=== PATIENT | male | born 1940 | race Caucasian/White ===

== ENCOUNTER 2019-01-29 12:26 | Observation (INO) ==
[2019-01-29] MEDS ORDERED: 0.9 % Sodium Chloride 1,000 ML ONE (16:40)
[2019-01-29] MEDS ORDERED: 0.9 % Sodium Chloride 1,000 ML IVC SCH (16:45)
[2019-01-29 17:01] LABS: Basophils % 0.1 %; Eosinophils % 0.1 %; Hematocrit 42.3 % (37.5-50.1); Immature Granulocytes % 0.2 % (0-4); Lymphocytes # 0.6 K/mcL (0.6-4.6); Lymphocytes % 6.4 %; Mean Corpuscular HGB Conc 33.1 g/dL (31.6-35.5); Mean Corpuscular Hemoglobin 29.8 pg (28.0-33.3); Mean Platelet Volume 9.6 fL (9.4-12.4); Monocytes # 0.7 K/mcL (0.0-1.3); Neutrophils # 8.6 K/mcL (1.6-8.9); Platelet Count 141 K/mcL (140-400); Segmented Neutrophils % 86.2 %
[2019-01-29 17:10] LABS: INR 1.1; Prothrombin Time 12.6 Seconds (9.4-12.1)
[2019-01-29 17:22] LABS: BUN/Creatinine Ratio 16 (6-26); Blood Urea Nitrogen 13 mg/dL (8-23); Calcium 8.7 mg/dL (8.6-10.3); Carbon Dioxide 25 mEq/L (23-29); Chloride 102 mEq/L (98-107); Glucose 150 mg/dL (70-105); Osmolality,Calculated 277 (280-300); Sodium 132 mEq/L (136-145); Troponin I < 0.03 ng/mL (< 0.04); eGFR For Non-African Americans > 60 (> 60)
[2019-01-29] MEDS ORDERED: Naloxone 0.4 MG/ML INJ IVP PRN (18:16)
[2019-01-29] MEDS ORDERED: Dextrose Gel 15 GM/37.5 ML TUBE PO PRN ×2 (18:16)
[2019-01-29] MEDS ORDERED: *HR* Dextrose 50 % in Water (Syg) 50 ML SYRINGE IVP PRN (18:16)
[2019-01-29] MEDS ORDERED: Ondansetron 4 MG/2 ML VIAL IVP PRN (18:16)
[2019-01-29] MEDS ORDERED: D5% in Water 1,000 ML IVC PRN (18:16)
--- NOTE | 2019-01-29 18:33 | Neurology - Consult Note ---
Date of Encounter: 01/29/19 Time of Encounter: 17:30 History of Present Illness HPI: Chart was reviewed, patient was seen and examined. Patient is known to me and was recently seen as an outpatient in my office regarding balance difficulty. Apparently last night his mentioned that he began experiencing more difficulty walking with associated confusion. Apparently he also had several ep isodes of diarrhea. He was taken to [facility] where he had a "normal work up" and was later transferred to [facility] at his 's request. Since being admitted here is become increasingly confused. He denies headache, however is really not a reliable historian. He seems to have some paucity of movement of the left upper and left lower extremities. He also seems to have paucity of speech. Neurologic exam finds weakness of the left upper and left lower extremity. He has no nuchal rigidity. A stroke alert was called patient was taken to the ED with the [facility] stroke protocol through the telemonitoring network was implemented. He was not deemed is a candidate for TPA. We are awaiting MRI scan of the brain currently. CT scan of the brain revealed no evidence of hemorrhage or mass effect. He does have cortical atrophy with compensatory ventricular dilatation, however no evidence of an obstructive hydrocephalus. Past Med Surg Social Fam HX - Past Medical History Medical history: arthritis, diabetes, GERD, hyperlipidemia Additional medical history: CAD. Rotator cuff tear. acromioclavicular joint arthritis Psychiatric history: no psych history - Past Surgical History Additional surgical history: CTR. Bilat knee. Sinus. Tonsillectomy. L tKR x2. heart stent x2 - Social History Smoking Status: Former smoker Smokeless Tobacco Status: No Alcohol use: occasionally Drug use: none - Family History Brother Hx Family Cardiac Disorders: Yes Hx Family Genitourinary Disorders: Yes Medications and Allergies Aspirin 81 mg PO DAILY 04/18/16 [History] Omeprazole [PriLOSEC] 20 mg PO DAILY 04/18/16 [History] Rosuvastatin Calcium [Crestor] 10 mg PO DAILY 04/18/16 [History] Tadalafil [Cialis] 20 mg PO DAILY PRN 04/18/16 [History] Tamsulosin [Flomax] 0.4 mg PO DAILY 04/18/16 [History] metFORMIN [Glucophage] 1,000 mg PO DAILY 04/18/16 [History] Albuterol Sulfate [Proair Hfa] 1 puff IH Q4H PRN 04/09/18 [History] Cetirizine HCl [24Hour Allergy] 10 mg PO DAILY 04/09/18 [History] Cholecalciferol (Vitamin D3) [Vitamin D] 1,000 unit PO DAILY 04/09/18 [History] Darifenacin Hydrobromide [Darifenacin ER] 15 mg PO DAILY 04/09/18 [History] Finasteride [Proscar] 5 mg PO DAILY 04/09/18 [History] Fluticasone Propionate Nasal [Flonase] 50 mcg NS DAILY PRN 04/09/18 [History] metFORMIN [Glucophage] 500 mg PO BIDWM 04/30/18 [History] DULoxetine [Cymbalta] 30 mg PO DAILY 01/29/19 [History] Allergy/AdvReac Type Severity Reaction Status Date / Time No Known Allergies Allergy Verified 04/30/18 09:16 All Systems: The remainder of the systems were reviewed and are negative Review of Systems: The balance of the systems review is negative. Physical Examination - Vital Signs Vital Signs: Initial Vital Signs Temp Pulse Resp BP Pulse Ox 100.1 F H 87 15 149/75 96 01/29/19 14:44 01/29/19 14:44 01/29/19 14:44 01/29/19 14:44 01/29/19 14:44 - Exam Exam: General Examination: *CONSTITUTIONAL: normal *GENERAL APPEARANCE OF PATIENT appears healthy and well groomed *EYES: pupils equal, round, reactive to light and accommodation, conjunctiva clear without masses or ulcerations, fundi normal. *CARDIOVASCULAR no peripheral edema, distal temperature normal, dorsalis pedis pulses normal. Refer to vital signs Musculoskeletal: *GAIT AND STATION WAS not assessed at this time. *ASSESSMENT OF MUSCLE STRENGTH finds weakness at about 4/5 strength of all muscles of the left upper and left lower extremities. He also has paucity of movement of the left leg when commanded to move it. He moves the right upper and right lower extremities freely. He has normal strength of the right upper and right lower extremities. No involuntary movements or atrophy are present. *MUSCLE TONE IN THE UPPER AND LOWER EXTREMITIES normal. No abnormal movements, fasciculations or atrophy identified. No nuchal rigidity is present. Neurological: *ORIENTATION to person only. *RECURRENT AND REMOTE MEMORY he does remember seeing me in the office. He knows that he is in [facility] now. However he is uncomfortable and cannot give a lucid history. *ATTENTION AND CONCENTRATION are normal *LANGUAGE FUNCTION he seems to have some paucity of speech and perhaps an element of expressive aphasia. *FUND OF KNOWLEDGE difficult to assess as he is confused *MENTAL attention span and concentration normal. *CN II optic fundi were normal, no papilledema noted. *CN III,IV, PERRLA extraocular eye movements were full, no nystagmus and no ptosis noted. *CN V shows normal sensation and jaw opens symmetrically. *CN VII shows normal facial movement symmetrically, upper and lower bilaterally. *CN VIII shows no significant hearing loss on examination in the office. *CN IX,,X palate elevated symmetrically and normal gag reflex was noted. *CN XI normal strength in the sternocleidomastoid muscles, symmetrical shoulder shrugging. *CN XII tongue protruded in the midline, with normal strength and movement. *SENSORY EXAMINATION difficult to assess today confused patient *REFLEXES: deep tendon reflexes were diminished symmetrically , grade 1/4 diffusely absent at both Achilles. Cannot rule out spontaneous left Babinski) was present *CEREBELLAR TESTING not assessed. *PAIN LEVEL -denies headache denies neck pain. Results - Laboratory Findings CBC and BMP: 01/29/19 16:45 01/29/19 16:45 Abnormal lab findings: Abnormal lab results PT 12.6 Seconds (9.4-12.1) H 01/29/19 16:45 Sodium 132 mEq/L (136-145) L 01/29/19 16:45 Glucose 150 mg/dL (70-105) H 01/29/19 16:45 277 (280-300) L 01/29/19 16:45 Consult Discharge Plan - Plan Referrals: Adolfo Moser DO [Primary Care Provider] -
--- NOTE | 2019-01-29 18:35 | Internal Med History&Physical ---
Date of Encounter: 01/29/19 Time of Encounter: 16:20 Internal Medicine - H&P: HPI Chief complaint: Altered mental status Admitted From: Home Plans for Post Hospital Care: Home History of present illness: Mr. Dyson is a 78 year old male transferred from [place] ER for fever, weakness, and altered mental status. Patient is disoriented, history obtained from patient's . Patient's past medical history is significant for diabetes, CAD S/P stent, arthritis, S/P bilateral total knee replacement. Per patient's , patient has generalized weakness and unstable gait for several months, progressively getting worse. Patient follows with neurology Dr. Pearce as outpatient and plan for LP as outpatient but not done yet. Patient is a generalized weak about to 1 days ago, has diarrhea last night. Diarrhea is watery, no blood in it. Patient has about 4 times diarrhea. Denies headache, chest pain, cough, shortness of breath, abdominal pain, nausea, or vomiting. Patient has fever, temperature around 101. Patient also was noticed progressively confused. Patient eat outside in restaurants about 2 days ago. Patient denies recent antibody use. In [facility] emergency room, urine analysis negative, lactate 0.9, influenza A test negative, CBC 10.1/14.5/43.2/160, BMP 135/4.1/98/24/15/0.90/149. Lipase 105. Liver function unremarkable. Troponin negative. Chest x-ray negative. Patient has worsening mental status when patient arrived at our hospital. Patient also was noticed left leg weak. Stroke alert initiated immediately. [facility] neurologist Dr. Rojas evaluated patient, patient has no clear onset weakness time, not to recommend TPA treatment, will follow regular stroke protocol. Past Med Surg Social Fam HX - Past Medical History Medical history: arthritis, diabetes, GERD, hyperlipidemia Additional medical history: CAD. Rotator cuff tear. acromioclavicular joint arthritis Psychiatric history: no psych history - Past Surgical History Additional surgical history: CTR. Bilat knee. Sinus. Tonsillectomy. L tKR x2. heart stent x2 - Social History Smoking Status: Former smoker Smokeless Tobacco Status: No Alcohol use: occasionally Drug use: none - Family History Brother Hx Family Cardiac Disorders: Yes Hx Family Genitourinary Disorders: Yes Internal Medicine - H&P: Meds Aspirin 81 mg PO DAILY 04/18/16 [History] Omeprazole [PriLOSEC] 20 mg PO DAILY 04/18/16 [History] Rosuvastatin Calcium [Crestor] 10 mg PO DAILY 04/18/16 [History] Tadalafil [Cialis] 20 mg PO DAILY PRN 04/18/16 [History] Tamsulosin [Flomax] 0.4 mg PO DAILY 04/18/16 [History] metFORMIN [Glucophage] 1,000 mg PO DAILY 04/18/16 [History] Albuterol Sulfate [Proair Hfa] 1 puff IH Q4H PRN 04/09/18 [History] Cetirizine HCl [24Hour Allergy] 10 mg PO DAILY 04/09/18 [History] Cholecalciferol (Vitamin D3) [Vitamin D] 1,000 unit PO DAILY 04/09/18 [History] Darifenacin Hydrobromide [Darifenacin ER] 15 mg PO DAILY 04/09/18 [History] Finasteride [Proscar] 5 mg PO DAILY 04/09/18 [History] Fluticasone Propionate Nasal [Flonase] 50 mcg NS DAILY PRN 04/09/18 [History] metFORMIN [Glucophage] 500 mg PO BIDWM 04/30/18 [History] DULoxetine [Cymbalta] 30 mg PO DAILY 01/29/19 [History] Allergy/AdvReac Type Severity Reaction Status Date / Time No Known Allergies Allergy Verified 04/30/18 09:16 All Systems PM: A 10-system review of systems was performed and is negative for pertinent findings except as documented above in the HPI. - Constitutional Vitals: Temp Pulse Resp BP Pulse Ox 100.1 F H 100 16 178/71 95 01/29/19 16:41 01/29/19 16:41 01/29/19 16:41 01/29/19 16:41 01/29/19 16:41 Exam: Pt is drowsy, AAO x 0, can follow command, can verbally answer questions. looks in NAD HEENT: NC/AT, PERRL Neck: Supple, no JVD, no LAD Lungs: CTA b/l Heart: S1S2, RRR Abd: Soft, nontender, BS present Ext: ROM wnl, no pedal edema Neuro: No facial drop. No slurred speech. Motor 2/5 left leg. Other neuro exam roughly intact although patient is disoriented and cannot exactly cooperate. Internal Med - H&P Results - Labs CBC & Chem 7: 01/29/19 16:45 01/29/19 16:45 Labs: Short CBC 01/29/19 Range/Units 16:45 WBC 9.9 (4.3-11.1) K/mcL Hgb 14.0 (12.9-16.9) g/dL Hct 42.3 (37.5-50.1) % Plt Count 141 (140-400) K/mcL Neutrophils # 8.6 (1.6-8.9) K/mcL BMP 01/29/19 16:45 Sodium 132 L Potassium 4.0 Chloride 102 Carbon Dioxide 25 BUN 13 Creatinine 0.79 Glucose 150 H Calcium 8.7 Cardiac Enzymes 01/29/19 Range/Units 16:45 Troponin I < 0.03 (< 0.04) ng/mL - EKG Data -: EKG Interpreted by Myself EKG shows normal: sinus rhythm Rate: normal (RBBB) - Impressions ITS Impressions Head CT 01/29/19 16:41 IMPRESSION: No acute intracranial abnormality. Mild chronic small vessel white matter ischemic changes. Imaging interpretation was completed at 5:07 p.m. Findings were discussed with Nguyễn Alberto MD at 5:24 p.m. on 01/29/2019. D/ / 01/29/2019 17:32:42 Femi Guerin MD / [email or web address] Interpreting Provider: Femi Guerin MD - Assessment and Plan (1) Acute metabolic encephalopathy Current Visit: Yes Status: Acute Assessment and plan: Patient has acute altered mental status. CT head during stroke alert shows no acute change. Patient denies headache. - We will continue IV fluid as patient has diarrhea may have dehydration. - No clear source of infection, patient has diarrhea, patient was treated with Cipro and Flagyl in [facility] emergency room, will continue at this point as patient has fever. - Patient has acceptable glucose level. - Closely monitor patient's mental status - MRI to rule out stroke. - Neurology consult. (2) Diarrhea Current Visit: Yes Status: Acute Assessment and plan: Etiology is undetermined. Per patient's , diarrhea stopped since this morning 7 AM. - Continue IV fluid - Correct electrolyte abnormality Qualifiers: Diarrhea type: unspecified type Qualified Code(s): R19.7 - Diarrhea, unspecified (3) Left leg weakness Current Visit: Yes Status: Acute Assessment and plan: Etiology is undetermined. Patient has a chronic left leg weakness but getting worse in last 24 hours. - No clear initial time, stroke alert called, [facility] neurology evaluated patient, no TPA at this point. - Cont NIHSS protocol - Continue cardiac monitoring - Echo and duplex carotid - MRI brain, MRI L-spine stat - Place patient on aspirin and atorvastatin - Neurology consult (4) Fever Current Visit: Yes Status: Acute Assessment and plan: Etiology undetermined. Patient has diarrhea. Abdominal exam is benign. - Place patient on Cipro and Flagyl - Blood culture - Symptomatic treatment Qualifiers: Fever type: unspecified Qualified Code(s): R50.9 - Fever, unspecified (5) Diabetes mellitus Current Visit: Yes Status: Acute Assessment and plan: Place patient on sliding scale insulin coverage. Qualifiers: Diabetes mellitus type: type 2 Diabetes mellitus manager long term care insulin use: lupe de leon manager long term care use Diabetes mellitus complication status: without complication Qualified Code(s): E11.9 - Type 2 diabetes mellitus without complications (6) DVT prophylaxis Current Visit: Yes Status: Acute Assessment and plan: Heparin subcutaneously - Time Spent With Patient Total time spent is greater than 50% in coordination of care (as documented) at patient's floor/unit and/or counseling patient: 40 minutes Greater than 35 minutes
[2019-01-29 20:53] LABS: Adenovirus Not Detected (Not Detect); Bordetella Pertussis Not Detected (Not Detect); Chlamydophila pneumoniae Not Detected (Not Detect); Coronavirus 229E Not Detected (Not Detect); Coronavirus HKU1 Not Detected (Not Detect); Coronavirus NL63 Not Detected (Not Detect); Coronavirus OC43 Not Detected (Not Detect); Human Metapneumovirus Not Detected (Not Detect); Human Rhinovirus/Enterovirus Not Detected (Not Detect); Influenza A Subtype 2009 H1 Not Detected (Not Detect); Influenza A Untypeable Not Detected (Not Detect); Influenza B Not Detected (Not Detect); Mycoplasma pneumoniae Not Detected (Not Detect); Parainfluenza Virus 1 Not Detected (Not Detect); Parainfluenza Virus 2 Not Detected (Not Detect); Parainfluenza Virus 3 Not Detected (Not Detect); Parainfluenza Virus 4 Not Detected (Not Detect); Respiratory Syncytial Virus Not Detected (Not Detect)
[2019-01-29] MEDS: 0.9 % Sodium Chloride 1,000 ML IVC SCH (22:19)
[2019-01-30] MEDS ORDERED: Piperacillin/Tazobactam 3.375 GM in 0.9 % Sodium Chloride Mini Bag 100 ML IVPB SCH
[2019-01-30] MEDS: MetroNIDAZOLE 500 MG/100 ML 500 MG/100 ML BAG IVPB SCH ×3 (00:12→17:37)
[2019-01-30] MEDS: Insulin LISPRO 300 UNITS/3 ML VIAL SQ SCH ×4 (00:45→19:20)
[2019-01-30] MEDS: Acyclovir 700 MG in D5% in Water 250 ML IVPB SCH ×2 (00:49→08:36)
[2019-01-30] MEDS ORDERED: *HR* Heparin 5,000 UNIT/ML VIAL SQ SCH (06:00)
--- NOTE | 2019-01-30 07:47 | Neurology Progress Note ---
Date of Encounter: 01/30/19 Time of Encounter: 07:45 Assessment and Plan (1) Acute metabolic encephalopathy Current Visit: Yes Status: Acute Considering the presentation of confusion, fever, diarrhea which is improved from acyclovir, I am concerned about the possibility of herpes encephalitis. He is also being evaluated for the possibility of normal pressure hydrocephalus prior to this hospitalization. In fact that just seen him in my office last w [facility] and had been planning a high volume lumbar puncture to observe for whether or not an intraventricular shunt might be helpful. I would like to complete this lumbar puncture during this hospital stay. We will see whether not IR is able to help with this. Otherwise I will maintain the acyclovir. Subjective Interval history: The chart was reviewed, the patient was seen and examined. He was sleeping upon my entering the room. He was aroused to voice. His mental status is improved today. He makes direct eye contact speech is appropriate, his processing is much improved. He is following commands. He still admits to a headache. He states he generally does not get headaches. He received his first dose of acyclovir last night. MRI scan of the brain was completed did not reveal any evidence of acute infarct, hemorrhage, neoplasm. He does have ventriculomegaly however which was being worked up as an outpatient in my office. MRI of the lum bar spine reveals no evidence of severe spinal stenosis. Does reveal multilevel degenerative change however there is no obvious compromise of any of the neural elements. Objective - Constitutional Vitals: Temp Pulse Resp BP Pulse Ox 99.5 F 76 16 128/71 95 01/30/19 04:35 01/30/19 04:35 01/30/19 04:35 01/30/19 04:35 01/30/19 04:35 Exam: Exam: General Examination: *CONSTITUTIONAL: normal *GENERAL APPEARANCE OF PATIENT appears healthy and well groomed *EYES: pupils equal, round, reactive to light and accommodation, conjunctiva clear without masses or ulcerations, fundi normal. *CARDIOVASCULAR no peripheral edema, distal temperature normal, dorsalis pedis pulses normal. Refer to vital signs Musculoskeletal: *GAIT AND STATION WAS not assessed at this time. *ASSESSMENT OF MUSCLE STRENGTH finds 5 over 5 and symmetric strength of both upper extremities. He has normal strength of the right lower extremity in all muscles. He has 4/5 strength of the left lower extremity. However he has improved ability to move the left leg. No involuntary movements or atrophy are present. *MUSCLE TONE IN THE UPPER AND LOWER EXTREMITIES normal. No abnormal movements, fasciculations or atrophy identified. No nuchal rigidity is present. Neurological: *ORIENTATION to person and place. He knows that he is in [facility]. He is confused about the mom states "I just woke up" *RECURRENT AND REMOTE MEMORY memory is improved today. Her members me, he remembers the problems that I was evaluating him for in the office. *ATTENTION AND CONCENTRATION are normal *LANGUAGE FUNCTION language is improved today. No evidence of expressive or receptive aphasia. *FUND OF KNOWLEDGE seems to be either absent or near baseline. *MENTAL attention span and concentration normal. *CN II optic fundi were normal, no papilledema noted. *CN III,IV, PERRLA extraocular eye movements were full, no nystagmus and no ptosis noted. *CN V shows normal sensation and jaw opens symmetrically. *CN VII shows normal facial movement symmetrically, upper and lower bilaterally. *CN VIII shows no significant hearing loss on examination in the office. *CN IX,,X palate elevated symmetrically and normal gag reflex was noted. *CN XI normal strength in the sternocleidomastoid muscles, symmetrical shoulder shrugging. *CN XII tongue protruded in the midline, with normal strength and movement. *SENSORY EXAMINATION difficult to assess today confused patient *REFLEXES: deep tendon reflexes were diminished symmetrically , grade 1/4 diffusely absent at both Achilles. Cannot rule out spontaneous left Babinski) was present *CEREBELLAR TESTING not assessed. *PAIN LEVEL -admits to mild headache this morning however headaches are unusual for him. Results - Laboratory Findings CBC and BMP: 01/29/19 16:45 01/29/19 16:45 Abnormal lab findings: Abnormal lab results PT 12.6 Seconds (9.4-12.1) H 01/29/19 16:45 Sodium 132 mEq/L (136-145) L 01/29/19 16:45 Glucose 150 mg/dL (70-105) H 01/29/19 16:45 POC Glucose 128 mg/dL (70-99) H 01/30/19 00:26 277 (280-300) L 01/29/19 16:45 Consult Discharge Plan - Plan Referrals: Adolfo Moser DO [Primary Care Provider] -
[2019-01-30 07:53] LABS: Basophils % 0.2 %; Eosinophils % 0.1 %; Hematocrit 41.5 % (37.5-50.1); Hemoglobin 13.8 g/dL (12.9-16.9); Immature Granulocytes % 0.4 % (0-4); Lymphocytes # 0.6 K/mcL (0.6-4.6); Lymphocytes % 7.1 %; Mean Corpuscular HGB Conc 33.3 g/dL (31.6-35.5); Mean Corpuscular Hemoglobin 30.1 pg (28.0-33.3); Mean Corpuscular Volume 90.4 fL (83.0-100.0); Mean Platelet Volume 10.2 fL (9.4-12.4); Monocytes # 0.7 K/mcL (0.0-1.3); Monocytes % 7.4 %; Neutrophils # 7.6 K/mcL (1.6-8.9); Platelet Count 119 K/mcL (140-400); Red Blood Count 4.59 M/mcL (4.19-5.50); Red Cell Distribution Width 13.2 % (11.5-14.5); Segmented Neutrophils % 84.8 %
[2019-01-30 08:02] LABS: INR 1.2; Prothrombin Time 13.1 Seconds (9.4-12.1)
[2019-01-30 08:18] LABS: Alanine Aminotransferase 8 Units/L (7-52); Albumin 3.7 g/dL (3.5-5.7); Albumin/Globulin Ratio 1.8 (1.1-2.2); Alkaline Phosphatase 59 Units/L (34-104); Aspartate Amino Transferase 11 Units/L (13-39); BUN/Creatinine Ratio 16 (6-26); Bilirubin,Total 0.7 mg/dL (0.3-1.0); Blood Urea Nitrogen 12 mg/dL (8-23); Calcium 8.7 mg/dL (8.6-10.3); Carbon Dioxide 22 mEq/L (23-29); Chloride 99 mEq/L (98-107); Chol/HDL Ratio 2.9 (0-4.9); Cholesterol 95 mg/dL (< 200); Globulin 2.1 g/dL (2.4-3.5); Glucose 123 mg/dL (70-105); HDL Cholesterol 33 mg/dL (40-59); LDL Cholesterol,Calculated 46 mg/dL (0-99); Magnesium 1.5 mg/dL (1.6-2.6); Osmolality,Calculated 273 (280-300); Potassium 3.5 mEq/L (3.5-5.1); Sodium 131 mEq/L (136-145); Total Protein 5.8 g/dL (6.4-8.9); Triglycerides 79 mg/dL (< 150); Troponin I 0.03 ng/mL (< 0.04); eGFR For Non-African Americans > 60 (> 60)
[2019-01-30] MEDS: 0.9 % Sodium Chloride 1,000 ML IVC SCH (08:36)
[2019-01-30] MEDS: Acetaminophen 325 MG TABLET PO PRN ×2 (08:39→21:32)
[2019-01-30 08:47] LABS: Estimated Average Glucose 157 mg/dl; Hemoglobin A1C 7.1 %
[2019-01-30] MEDS: Aspirin Enteric Coated 81 MG Tablet PO SCH (11:32)
[2019-01-30 15:38] LABS: Appearance,CSF Clear (Clear)
[2019-01-30 15:41] LABS: Red Blood Cell,CSF < 0.002 M/mcL
[2019-01-30 16:32] LABS: Glucose,CSF 87 mg/dL (40-70); Total Protein,CSF 82 mg/dL (15-45)
--- NOTE | 2019-01-30 16:35 | Internal Med Progress Note ---
Hospitalist Progress Note - Encounter Date of Encounter: 01/30/19 Time of Encounter: 09:00 - Subjective Interval History: Patient is more awake alert, oriented 3 today. Left leg weakness has improved. No further diarrhea. Denies abdominal pain. Complain mild headache. Still has low fever. - Exam Vitals: Temp Pulse Resp BP Pulse Ox 98.8 F 71 16 119/67 95 01/30/19 15:30 01/30/19 15:30 01/30/19 15:30 01/30/19 15:30 01/30/19 11:58 Exam: Pt is drowsy, AAO x 0, can follow command, can verbally answer questions. looks in NAD HEENT: NC/AT, PERRL Neck: Supple, no JVD, no LAD Lungs: CTA b/l Heart: S1S2, RRR Abd: Soft, nontender, BS present Ext: ROM wnl, no pedal edema Neuro: No facial drop. No slurred speech. No focal neuro deficit. - Assessment and Plan (1) Acute metabolic encephalopathy Current Visit: Yes Status: Acute Assessment and Plan: Etiology is undetermined. Improved at this point. - Neurology consult appreciated. 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 Acyclovir started. - Patient had LP today. - Continue closely monitor patient. Continue supportive treatment. (2) Diarrhea Current Visit: Yes Status: Acute Assessment and Plan: Etiology is undetermined. Diarrhea stopped. No stool sample send as diarrhea stopped. (3) Left leg weakness Current Visit: Yes Status: Acute Assessment and Plan: Left leg strength back to baseline now. Brain MRI and L-spine MRI unremarkable. CVA ruled out. (4) Fever Current Visit: Yes Status: Acute Assessment and Plan: Etiology undetermined. Patient has diarrhea. Abdominal exam is benign. - Place patient on Cipro and Flagyl from [facility] ER, will continue, expect DC if remains no diarrhea. - Blood culture pending - Acyclovir for possible viral encephalitis. - Chest x-ray and urine analysis in [facility] emergency room negative. Patient denies cough or dysuria. - Symptomatic treatment (5) Diabetes mellitus Current Visit: Yes Status: Acute Assessment and Plan: Place patient on sliding scale insulin coverage. (6) DVT prophylaxis Current Visit: Yes Status: Acute Assessment and Plan: EPCDs - Time Spent with Patient Total time spent is greater than 50% in coordination of care (as documented) at patient's floor/unit and/or counseling patient: 30 minutes 25 - 35 minutes Plan of Care Discussed with: patient Internal Medicine: Result - Labs CBC & Chem 7: 01/30/19 05:46 01/30/19 05:46 Labs: Short CBC 01/29/19 01/30/19 Range/Units 16:45 05:46 WBC 9.9 9.0 (4.3-11.1) K/mcL Hgb 14.0 13.8 (12.9-16.9) g/dL Hct 42.3 41.5 (37.5-50.1) % Plt Count 141 119 L (140-400) K/mcL Neutrophils # 8.6 7.6 (1.6-8.9) K/mcL BMP 01/29/19 01/30/19 16:45 05:46 Sodium 132 L 131 L Potassium 4.0 3.5 Chloride 102 99 Carbon Dioxide 25 22 L BUN 13 12 Creatinine 0.79 0.74 Glucose 150 H 123 H Calcium 8.7 8.7 Cardiac Enzymes 01/29/19 01/30/19 Range/Units 16:45 05:46 Troponin I < 0.03 0.03 (< 0.04) ng/mL Liver Function 01/30/19 Range/Units 05:46 Total Bilirubin 0.7 (0.3-1.0) mg/dL AST 11 L (13-39) Units/L ALT 8 (7-52) Units/L Alkaline Phosphatase 59 (34-104) Units/L Albumin 3.7 (3.5-5.7) g/dL - ABG Interpretation ABG results: PT/INR, D-dimer PT 13.1 Seconds (9.4-12.1) H 01/30/19 05:46 - Impressions Impressions Head CT 01/29/19 16:41 IMPRESSION: No acute intracranial abnormality. Mild chronic small vessel white matter ischemic changes. Imaging interpretation was completed at 5:07 p.m. Findings were discussed with Nguyễn Alberto MD at 5:24 p.m. on 01/29/2019. D/ / 01/29/2019 17:32:42 Femi Guerin MD / jodee Interpreting Provider: Femi Guerin MD Brain MRI 01/29/19 17:37 IMPRESSION: [id number] chronic small ischemic disease and age related involutional changes. No acute stroke, midline shift or mass effect. 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 See above for details of each level Detail is limited due to artifact from motion. D/ / Jaylon Chinchilla / Jaylon Chinchilla Interpreting Provider: Jaylon Chinchilla Echocardiogram 01/29/19 18:20 Impressions: LVEF 65-70%. Mild left ventricular diastolic dysfunction. Normal right ventricular structure and function. No significant valvular dysfunction. No evidence of pulmonary hypertension. Non-diagnostic of PFO with agitated saline contrast. Left Ventricular Wall Motion: Rest Echo Findings All wall segments showed normal motion. Findings: Study Quality * Technically sub-optimal due to poor echocardiographic windows. ECG Findings * Sinus rhythm with BBB. Left Ventricle * LVEF 65-70%. * Normal LV chamber size and systolic function. * Thickening of basal septum. * Mild left ventricular diastolic dysfunction. * Definity echo contrast was not used. * Atypical septal motion consistent with bundle branch block. Right Ventricle * Normal right ventricular structure and function. Left Atrium * Normal left atrial size. Right Atrium * Normal right atrial size. Interatrial Septum * Non-diagnostic of PFO with agitated saline contrast. Aortic Valve * Trileaflet aortic valve. * No aortic stenosis. Elevated LVOT gradient MG 5mmHg likely due to dynamic LV and thickening of basal septum. * No aortic regurgitation. Mitral Valve * Normal mitral valve structure. * No mitral stenosis. * Trace mitral regurgitation. Tricuspid Valve * Normal tricuspid valve structure. * No tricuspid stenosis. * Trace tricuspid regurgitation. * Unable to estimate RVSP due to lack of TR jet. * No evidence of pulmonary hypertension. * Estimated RA pressure is 3 mmHg. Pulmonic Valve * Normal pulmonic valve structure. * No pulmonic stenosis. * No pulmonic regurgitation. Aorta * Normally sized aortic root. Pericardium * The pericardium appears normal. IVC * The IVC is not dilated. * > 50% respiratory change Lumbar Puncture Fluoroscopy 01/30/19 14:00 IMPRESSION: Successful fluoroscopic-guided lumbar puncture. Normal opening pressure. Request was initially made for 40 ml of cerebrospinal fluid collection; however, given the normal pressure and low volume of CSF fluid flow, only 10 ml were obtained. D/ / 01/30/2019 15:02:07 Mario Khalil MD / jodee Interpreting Provider: Mario Khalil MD Consult Discharge Plan - Plan Referrals: Adolfo Moser DO [Primary Care Provider] - (2) Diarrhea Qualifiers: Diarrhea type: unspecified type Qualified Code(s): R19.7 - Diarrhea, unspe cified (4) Fever Qualifiers: Fever type: unspecified Qualified Code(s): R50.9 - Fever, unspecified (5) Diabetes mellitus Qualifiers: Diabetes mellitus type: type 2 Diabetes mellitus terminal superintendent insulin use: without terminal superintendent use Diabetes mellitus complication status: without complication Qualified Code(s): E11.9 - Type 2 diabetes mellitus without complications
[2019-01-31] MEDS: MetroNIDAZOLE 500 MG/100 ML 500 MG/100 ML BAG IVPB SCH (01:21)
[2019-01-31] MEDS: Insulin LISPRO 300 UNITS/3 ML VIAL SQ SCH ×4 (04:09→17:23)
[2019-01-31] MEDS: Finasteride 5 MG TABLET PO SCH (08:18)
[2019-01-31] MEDS: Cholecalciferol (D-3) 1,000 UNIT TABLET PO SCH (08:19)
[2019-01-31] MEDS: Aspirin Enteric Coated 81 MG Tablet PO SCH (08:19)
[2019-01-31 09:51] LABS: Basophils % 0.2 %; Eosinophils # 0.1 K/mcL (0.0-0.6); Hematocrit 40.8 % (37.5-50.1); Hemoglobin 13.5 g/dL (12.9-16.9); Immature Granulocytes % 0.3 % (0-4); Lymphocytes # 0.6 K/mcL (0.6-4.6); Lymphocytes % 8.7 %; Mean Corpuscular HGB Conc 33.1 g/dL (31.6-35.5); Mean Corpuscular Hemoglobin 29.7 pg (28.0-33.3); Mean Corpuscular Volume 89.7 fL (83.0-100.0); Mean Platelet Volume 9.9 fL (9.4-12.4); Monocytes # 0.6 K/mcL (0.0-1.3); Monocytes % 8.9 %; Neutrophils # 5.1 K/mcL (1.6-8.9); Platelet Count 140 K/mcL (140-400); Red Blood Count 4.55 M/mcL (4.19-5.50); Red Cell Distribution Width 13.2 % (11.5-14.5); Segmented Neutrophils % 80.9 %
[2019-01-31 10:11] LABS: BUN/Creatinine Ratio 17 (6-26); Blood Urea Nitrogen 11 mg/dL (8-23); Calcium 8.8 mg/dL (8.6-10.3); Carbon Dioxide 24 mEq/L (23-29); Chloride 104 mEq/L (98-107); Glucose 148 mg/dL (70-105); Osmolality,Calculated 284 (280-300); Potassium 3.8 mEq/L (3.5-5.1); Sodium 136 mEq/L (136-145); eGFR For Non-African Americans > 60 (> 60)
--- NOTE | 2019-01-31 11:05 | Neurology Progress Note ---
Date of Encounter: 01/31/19 Time of Encounter: 11:00 Assessment and Plan (1) Acute metabolic encephalopathy Current Visit: Yes Status: Acute Patient is doing much better in terms of his mental status and he seems is back to baseline. no fever and no muscle rigidity, CSF study showed normal WBC with elevated protein level and combined with the normal MRI of brain i do not believe he has infectious encephalitis, bacterial or viral, although he has been treated. I do not believe that he needs antiviral treatment at this point. Plus antiviral therapy may be the cause of his vomiting. LP showed actually low CSF opening pressure and large volume CSF can not be collected due to seemingly low pressure setting per interventionlist who performed the LP. Elevated protein can be related to ongoing medical encephalopathy that caused the confusion to begin with, although no definitive cause was identified. Please continue medical and supportive care. He is to follow up with Dr. Javier Pearce in the next few weeks for follow up regarding his chronic gait difficulty and falling. Likely the frequent falling is multifactorial in etiology. so far only thing positive was lumbar radiculopathy that were shown evidence on EMG/NCV study and MRI of lumbar spine. No acute intervention necessary at this time. I spent 35 minutes face to face with the patient, of which more than 50% of time was spent in counselling and coordination of care Subjective Principal diagnosis: Confusion Interval history: Patient seen and examined. He is doing better and says that he is 'more connected' He is able to talk to his over the phone just fine. He is alert awake and able to tell me a good story regarding his previous medical history, especially things related to frequent falling and apparently rather extensive work up has been done in the past 1-2 years and no single significant pathology was identified to explain his frequent falling. Was concerned about NPH but LP done yesterday showed low opening CSF pressure of 10cm of water, and only 10cc of CSF were collected. CSF study showed normal WBC of 3, with elevated protein level of 82. Has had MRI of cervical spine showed presence of spinal canal stenosis due to disc disease but no definitive spinal cord pathology identified. Patient has had EMG/NCV study during November/2018 showing acute on chronic right left L5 radiculopathy, but no evidence of mononeuropathy, lumboxacral plexopathy or generalized peripheral polyneuropathy. Patient has no fever but does admit a slight frontal headache. He vomited this morning. Objective - Constitutional Vitals: Temp Pulse Resp BP Pulse Ox 97.4 F L 68 16 149/81 97 01/31/19 07:25 01/31/19 07:25 01/31/19 07:25 01/31/19 07:25 01/31/19 07:25 - Neurological Exam Sensorimotor examination: Present: other (numbness to the left foot noted) Motor examination - right side: 01/25: deltoids, biceps, triceps, wrist flexion, wrist extension, combination machine tool setter, hip flexors, tibialis Anterior, quadriceps, toe extension (EHL), plantarflexion Motor examination - left side: 55: deltoids, biceps, triceps, wrist flexion, wrist extension, hip flexors, combination machine tool setter, quadriceps, tibialis Anterior, toe extension (EHL), plantarflexion Sensation intact: Present: other (reduced pinprick to the left foot) Posture: Present: other (None) Reflex and gait examination: other (Gait not tested) Reflexes: Biceps: 2+, Triceps: 2+, Brachioradialis: 2+, Patella: 2+, Achilles: 1+ Mental Status Examination: Present: awake, alert, oriented to person, oriented to place, oriented to time, follows commands appropriately, answers questions appropriately, no agnosia, no aphasia, no aproxia Cranial nerve examination: Present: PERRL, EOMI, visual peters intact, corneal reflexes brisk symmetrically, sensory to face intact, mastication intact, no facial asymmetry is present, no dysarthria, hearing is intact symmetrically, soft palate elevates bilaterally upon phonation, gag reflex intact, flexes SCM and trapezius muscles symmetrically with full power, tongue protrudes midline, no atrophy or facial fasiculations present Results - Laboratory Findings CBC and BMP: 01/31/19 09:19 01/31/19 09:19 Abnormal lab findings: Abnormal lab results Plt Count 119 K/mcL (140-400) L 01/30/19 05:46 PT 13.1 Seconds (9.4-12.1) H 01/30/19 05:46 Sodium 131 mEq/L (136-145) L 01/30/19 05:46 Carbon Dioxide 22 mEq/L (23-29) L 01/30/19 05:46 0.66 mg/dL (0.70-1.30) L 01/31/19 09:19 Glucose 148 mg/dL (70-105) H 01/31/19 09:19 POC Glucose 171 mg/dL (70-99) H 01/30/19 20:24 7.1 % (-5.6) H 01/30/19 05:46 273 (280-300) L 01/30/19 05:46 Magnesium 1.5 mg/dL (1.6-2.6) L 01/30/19 05:46 AST 11 Units/L (13-39) L 01/30/19 05:46 5.8 g/dL (6.4-8.9) L 01/30/19 05:46 2.1 g/dL (2.4-3.5) L 01/30/19 05:46 33 mg/dL (40-59) L 01/30/19 05:46 87 mg/dL (40-70) H 01/30/19 14:27 82 mg/dL (15-45) H 01/30/19 14:27 Consult Discharge Plan - Plan Referrals: Adolfo Moser DO [Primary Care Provider] -
--- NOTE | 2019-01-31 12:42 | Internal Med Progress Note ---
Hospitalist Progress Note - Encounter Date of Encounter: 01/31/19 Time of Encounter: 09:00 - Subjective Interval History: Patient feels better. More awake alert, oriented 3. Back to his baseline. Still weak. Has one episode of vomiting, with greenish fluid, no blood in it. - Exam Vitals: Temp Pulse Resp BP Pulse Ox 98.1 F 66 16 141/84 94 01/31/19 11:33 01/31/19 11:33 01/31/19 11:33 01/31/19 11:33 01/31/19 11:33 Exam: Pt is AAO x 3, in NAD HEENT: NC/AT, PERRL Neck: Supple, no JVD, no LAD Lungs: CTA b/l Heart: S1S2, RRR Abd: Soft, nontender, BS present Ext: ROM wnl, no pedal edema Neuro: No focal deficit - Assessment and Plan (1) Acute metabolic encephalopathy Current Visit: Yes Status: Acute Assessment and Plan: Etiology is undetermined. Resolved at this point. - Neurology consult appreciated. Acyclovir discontinued as lumbar puncture result does not support encephalitis. - Patient has no fever. Mental status back to baseline. - Likely patient has viral gastroenteritis as he has diarrhea and fever. Mental status change possibly due to metabolic reason caused by fever and dehydration (2) Diarrhea Current Visit: Yes Status: Acute Assessment and Plan: Etiology is undetermined. Diarrhea stopped. No stool sample send as diarrhea stopped. Short episode of diarrhea likely viral gastroenteritis. (3) Left leg weakness Current Visit: Yes Status: Acute Assessment and Plan: Left leg strength back to baseline now. Brain MRI and L-spine MRI unremarkable. CVA ruled out. (4) Fever Current Visit: Yes Status: Acute Assessment and Plan: Etiology undetermined. Patient has diarrhea. Abdominal exam is benign. - We will DC antibiotic as patient has no clear evidence of infection - Blood culture no growth so far - Chest x-ray and urine analysis in [facility] emergency room negative. Patient denies cough or dysuria. - Symptomatic treatment. No fever in last 24 hours (5) Diabetes mellitus Current Visit: Yes Status: Acute Assessment and Plan: Place patient on sliding scale insulin coverage. (6) DVT prophylaxis Current Visit: Yes Status: Acute Assessment and Plan: EPCDs (7) Carotid stenosis Current Visit: Yes Status: Acute Assessment and Plan: Carotid duplex shows bilateral 40-59% stenosis. No indication for surgery. Continue aspirin and statin. Continue outpatient follow-up. - Time Spent with Patient Total time spent is greater than 50% in coordination of care (as documented) at patient's floor/unit and/or counseling patient: 30 minutes 25 - 35 minutes Plan of Care Discussed with: patient Internal Medicine: Result - Labs CBC & Chem 7: 01/31/19 09:19 01/31/19 09:19 Labs: Short CBC 01/31/19 Range/Units 09:19 WBC 6.3 (4.3-11.1) K/mcL Hgb 13.5 (12.9-16.9) g/dL Hct 40.8 (37.5-50.1) % Plt Count 140 (140-400) K/mcL Neutrophils # 5.1 (1.6-8.9) K/mcL BMP 01/31/19 09:19 Sodium 136 Potassium 3.8 Chloride 104 Carbon Dioxide 24 BUN 11 Creatinine 0.66 L Glucose 148 H Calcium 8.8 - ABG Interpretation ABG results: PT/INR, D-dimer PT 13.1 Seconds (9.4-12.1) H 01/30/19 05:46 - Impressions Impressions Lumbar Puncture Fluoroscopy 01/30/19 14:00 IMPRESSION: Successful fluoroscopic-guided lumbar puncture. Normal opening pressure. Request was initially made for 40 ml of cerebrospinal fluid collection; however, given the normal pressure and low volume of CSF fluid flow, only 10 ml could be obtained. D/ / 01/30/2019 15:02:07 Mario Khalil MD / jodee Interpreting Provider: Mario Khalil MD Consult Discharge Plan - Plan Referrals: Adolfo Moser DO [Primary Care Provider] - (2) Diarrhea Qualifiers: Diarrhea type: unspecified type Qualified Code(s): R19.7 - Diarrhea, unspecified (4) Fever Qualifiers: Fever type: unspecified Qualified Code(s): R50.9 - Fever, unspecified (5) Diabetes mellitus Qualifiers: Diabetes mellitus type: type 2 Diabetes mellitus fdc insulin use: without fdc use Diabetes mellitus complication status: without complication Qualified Code(s): E11.9 - Type 2 diabetes mellitus without complications (7) Carotid stenosis Qualifiers: Laterality: bilateral Qualified Code(s): I65.23 - Occlusion and stenosis of bilateral carotid arteries
[2019-01-31] MEDS: Artificial Tears SOLN 15 ML BOTTLE BOTH EYES SCH (22:59)
[2019-02-01 08:33] VITALS: BP 155/77
[2019-02-01] MEDS: Insulin LISPRO 300 UNITS/3 ML VIAL SQ SCH (08:43)
[2019-02-01] MEDS: Finasteride 5 MG TABLET PO SCH (08:50)
[2019-02-01] MEDS: Cholecalciferol (D-3) 1,000 UNIT TABLET PO SCH (08:50)
[2019-02-01] MEDS: Artificial Tears SOLN 15 ML BOTTLE BOTH EYES SCH (08:50)
[2019-02-01] MEDS: Aspirin Enteric Coated 81 MG Tablet PO SCH (08:50)
--- NOTE | 2019-02-01 10:40 | Discharge Summary ---
Orders not resulted at time of discharge: Pending orders 01/29/19 19:08 Culture,Blood [BC] Stat 01/30/19 14:27 Culture,CSF [RM] Stat Date of Encounter: 02/01/19 Time of Encounter: 09:30 - Discharge Diagnosis (1) Acute metabolic encephalopathy Priority: Primary Status: Acute (2) Diarrhea Priority: Primary Status: Acute Qualifiers: Diarrhea type: unspecified type Qualified Code(s): R19.7 - Diarrhea, unspecified (3) Left leg weakness Priority: Primary Status: Acute (4) Fever Priority: Primary Status: Acute Qualifiers: Fever type: unspecified Qualified Code(s): R50.9 - Fever, unspecified (5) Diabetes mellitus Priority: Secondary Status: Acute Qualifiers: Diabetes mellitus type: type 2 Diabetes mellitus crack off person insulin use: without crack off person use Diabetes mellitus complication status: without complication Qualified Code(s): E11.9 - Type 2 diabetes mellitus without complications (6) DVT prophylaxis Priority: Secondary Status: Acute (7) Carotid stenosis Priority: Secondary Status: Acute Qualifiers: Laterality: bilateral Qualified Code(s): I65.23 - Occlusion and stenosis of bilateral carotid arteries Hospital course: Mr. Dyson is a 78 year old male presented to [facility] ER for altered mental status and fever. Patient was suspected CVA initially, stroke alert called upon arrival at our hospital. Patient is not a candidate for TPA. Further MRI shows no acute infarct. Patient was initially treated with acyclovir for suspected viral encephalitis. LP has been done, not support encephalitis. Acyclovir discontinued per neurology. Patient was given IV fluid for dehydration, and IV Cipro and Flagyl for possible colitis. His diarrhea has completely stopped. His fever has resolved over the last 48 hours. Cipro and Flagyl stopped. Patient has no further abdominal pain or diarrhea. Patient's mental status back to baseline. Patient has chronic gait change, he will continue follow-up with his neurology as outpatient. Patient was considered viral gastroenteritis with metabolic encephalopathy. At this point, he come back to his baseline. I have seen and examined the patient today. Patient is awake alert, oriented 3. No fever. Denies abdominal pain, nausea, vomiting, diarrhea. Vitals are stable. Afebrile over 48 hours. Will DC patient home, continue follow-up with his PCP and neurology as outpatient. Discharge discussed with: patient - Time Spent with Patient Total time spent providing and/or coordinating discharge services: - Discharge Medications Prescriptions: Continued Omeprazole [PriLOSEC] 20 mg PO BID Cetirizine HCl [24Hour Allergy] 10 mg PO DAILY Finasteride [Proscar] 5 mg PO DAILY Cholecalciferol (Vitamin D3) [Vitamin D3] 1,000 unit PO DAILY DULoxetine [Cymbalta] 30 mg PO DAILY Darifenacin Hydrobromide [Darifenacin ER] 15 mg PO DAILY Metformin HCl 500 mg PO BID Rosuvastatin Calcium [Crestor] 10 mg PO DAILY Docusate [Colace] 100 mg PO BID Home Medications: Omeprazole [PriLOSEC] 20 mg PO BID 04/18/16 [History] Cetirizine HCl [24Hour Allergy] 10 mg PO DAILY 04/09/18 [History] Cholecalciferol (Vitamin D3) [Vitamin D3] 1,000 unit PO DAILY 04/09/18 [History] Finasteride [Proscar] 5 mg PO DAILY 04/09/18 [History] DULoxetine [Cymbalta] 30 mg PO DAILY 01/29/19 [History] Darifenacin Hydrobromide [Darifenacin ER] 15 mg PO DAILY 01/29/19 [History] Docusate [Colace] 100 mg PO BID 01/29/19 [History] Metformin HCl 500 mg PO BID 01/29/19 [History] Rosuvastatin Calcium [Crestor] 10 mg PO DAILY 01/29/19 [History] Allergies/Adverse Reactions: Allergy/AdvReac Type Severity Reaction Status Date / Time No Known Allergies Allergy Verified 01/29/19 20:28 Date of admission: 01/29/19 14:31 Primary care physician: Adolfo Moser DO Consults: 01/29/19 16:07 Consult to Pastoral Services [CONS] Routine Comment: Consult to Broke Beater Operator [CONS] Routine Reason for SW Consult: potential need to SNF 01/29/19 18:16 Consult to Neurology [CONS] Routine Consulting Provider: Neurology [facility] Reason for Consult: Weakness ofleft leg Call Completed: Yes 01/30/19 07:53 Consult to Interventional Radiology [CONS] Routine Consulting Provider: Radiology Interventional Cols Reason for Consult: Concerned about the possibility of herpes encephalitis. Also concerned about the possibility of normal pressure hydrocephalus. Consulting interventional radiology for a high volume lumbar puncture. Would like to remove 40 mL of cerebral spinal fluid. Also like to send CSF for appropriate analysis. Call Completed: No 01/30/19 10:39 Consult to Interpret Exam [CONS] Routine Consulting Provider: Javier Pearce Consult to Interpret Exam: Interpret EEG 01/30/19 15:26 Consult to Physical Therapy [CONS] Routine Comment: Evaluate, develop and implement POC Reason for Consult: weakness Does patient have active BEDREST order?: No Is patient medically & hemodynamically stable?: Yes Patient assessed for mobility or mobilized this visit?: No 01/30/19 15:27 Consult to Occupational Therapy [CONS] Routine Comment: Evaluate, develop and implement POC Reason for Consult: weakness Does patient have active BEDREST order?: No Is patient medically & hemodynamically stable?: Yes Patient assessed for mobility or mobilized this visit?: No Discharging clinician: Nguyễn Alberto Anticipated date of discharge: 02/01/19 - Constitutional Vitals: Temp Pulse Resp BP Pulse Ox 97.5 F L 64 16 155/77 97 02/01/19 08:24 02/01/19 08:24 02/01/19 08:24 02/01/19 08:24 02/01/19 08:24 Exam: Pt is AAO x 3, in NAD HEENT: NC/AT, PERRL Neck: Supple, no JVD, no LAD Lungs: CTA b/l Heart: S1S2, RRR Abd: Soft, nontender, BS present Ext: ROM wnl, no pedal edema Neuro: No focal deficit - Patient Status Disposition: Home, Self-Care Condition: Good Functional capacity at discharge: uses cane/walker Overall status at discharge: patient is back to baseline - Discharge Instructions Follow Up With: Adolfo Moser DO [Primary Care Provider] - - Diet and Activity Activity: increase activity as tolerated Diet: diabetic diet
--- NOTE | 2019-02-04 11:02 | Physician Discharge Referral ---
Home Health/Hosp Referral Info Provider in Charge Post Discharge: PCP - Diagnosis (1) Acute metabolic encephalopathy Status: Acute (2) Carotid stenosis Status: Acute (3) Diabetes mellitus Status: Acute (4) Fever Status: Acute (5) Left leg weakness Status: Acute - Respiratory Orders Smoking Cessation: Smoking cessation has been advised. For more information, call the [place] Tobacco Quit Line at 7-773-TBXE-NOW. - Services Needed Following services are medically necessary services: Physical Therapy, Occupational Therapy - Transfer Medications Home Medications: Omeprazole [PriLOSEC] 20 mg PO BID 04/18/16 [History] Cetirizine HCl [24Hour Allergy] 10 mg PO DAILY 04/09/18 [History] Cholecalciferol (Vitamin D3) [Vitamin D3] 1,000 unit PO DAILY 04/09/18 [History] Finasteride [Proscar] 5 mg PO DAILY 04/09/18 [History] DULoxetine [Cymbalta] 30 mg PO DAILY 01/29/19 [History] Darifenacin Hydrobromide [Darifenacin ER] 15 mg PO DAILY 01/29/19 [History] Docusate [Colace] 100 mg PO BID 01/29/19 [History] Metformin HCl 500 mg PO BID 01/29/19 [History] Rosuvastatin Calcium [Crestor] 10 mg PO DAILY 01/29/19 [History] Allergies/Adverse Reactions: Allergy/AdvReac Type Severity Reaction Status Date / Time No Known Allergies Allergy Verified 01/29/19 20:28 Certification: Further, I certify that my clinical findings support that this patient is homebound (i.e. absences from home require considerable and taxing effort and are for medical reasons or hindu services or infrequently or short duration when for other reasons) because: Homebound Reason: Patient requires assistance of a person or device to safely leave home Attestation: My signature below is to certify that this patient is under my care and that I, or nurse practitioner, or a physician's collections assistant working with me, has a [id number] encounter with this patient.
== END 2019-02-01 12:13 | disposition home or self-care (01) ==
LOC: 3ANU
PROVIDERS: ADMIT Student in an Organized Health Care Education/Training Program; ATTEND Student in an Organized Health Care Education/Training Program

== ENCOUNTER 2022-01-01 00:44 | Inpatient (IN) ==
[2022-01-01] MEDS ORDERED: *HR* Heparin 5,000 UNIT/ML VIAL IVP PRN ×2 (01:02)
[2022-01-01] MEDS ORDERED: *HR* Ticagrelor 90 MG TABLET PO ONE (01:02)
[2022-01-01] MEDS ORDERED: *HR* Heparin 5,000 UNIT/ML VIAL IVP ONE (01:02)
[2022-01-01] MEDS ORDERED: Heparin 25,000UNIT/250ML 1/2NS 25,000 UNIT/250 ML IV.SOLN IVC SCH (01:15)
[2022-01-01] MEDS ORDERED: *HR* Midazolam HCl 2 MG/2 ML VIAL ONE (01:19)
[2022-01-01] MEDS ORDERED: *HR* FentaNYL (PF) 100 MCG/2 ML VIAL ONE (01:19)
[2022-01-01 01:20] LABS: Basophils % 0.3 %; Eosinophils # 0.1 K/mcL (0.0-0.6); Eosinophils % 0.9 %; Hemoglobin 11.4 g/dL (12.9-16.9); Immature Granulocytes % 0.4 % (0-4); Lymphocytes % 9.1 %; Mean Corpuscular HGB Conc 31.7 g/dL (31.6-35.5); Mean Corpuscular Hemoglobin 27.3 pg (28.0-33.3); Mean Corpuscular Volume 86.1 fL (83.0-100.0); Mean Platelet Volume 9.8 fL (9.4-12.4); Monocytes # 0.9 K/mcL (0.0-1.3); Monocytes % 8.3 %; Neutrophils # 9.2 K/mcL (1.6-8.9); Platelet Count 228 K/mcL (140-400); Red Blood Count 4.18 M/mcL (4.19-5.50); Red Cell Distribution Width 14.4 % (11.5-14.5); White Blood Count 11.4 K/mcL (4.3-11.1)
[2022-01-01] MEDS ORDERED: ISOVUE-370 200 ML INFUS..BTL ONE ×2 (01:20→02:51)
[2022-01-01] MEDS ORDERED: *HR* Heparin 10,000 UNIT/10 ML VIAL ONE (01:20)
[2022-01-01] MEDS ORDERED: Nitroglycerin 1,000 MCG/5 ML VIAL IV ONE (01:20)
[2022-01-01] MEDS ORDERED: 0.9 % Sodium Chloride 1,000 ML ONE (01:20)
[2022-01-01] MEDS ORDERED: Heparin 1,000 UNITS/500 mL 500 ML ONE ×2 (01:20→02:29)
[2022-01-01 01:31] LABS: Heparin anti-factor XA UFH < 0.04 IU/mL (0.30-0.70); Prothrombin Time 11.4 Seconds (9.4-12.1)
[2022-01-01 01:34] LABS: Activated Partial Thrombo Time 28.4 Seconds (26.0-36.0)
[2022-01-01 01:41] LABS: Alanine Aminotransferase 14 Units/L (7-52); Albumin 3.7 g/dL (3.5-5.7); Albumin/Globulin Ratio 1.4 (1.1-2.2); Alkaline Phosphatase 57 Units/L (34-104); Aspartate Amino Transferase 11 Units/L (13-39); BUN/Creatinine Ratio 20 (6-26); Bilirubin,Direct 0.1 mg/dL (0.0-0.2); Bilirubin,Indirect 0.2 mg/dL (0.0-1.0); Bilirubin,Total 0.3 mg/dL (0.3-1.0); Blood Urea Nitrogen 18 mg/dL (8-23); Calcium 9.2 mg/dL (8.6-10.3); Carbon Dioxide 24 mEq/L (23-29); Chloride 101 mEq/L (98-107); Globulin 2.7 g/dL (2.4-3.5); Glucose 168 mg/dL (70-105); Osmolality,Calculated 284 (280-300); Potassium 4.1 mEq/L (3.5-5.1); Sodium 134 mEq/L (136-145); Total Protein 6.4 g/dL (6.4-8.9); Troponin I < 0.03 ng/mL (< 0.04); eGFR For African Americans > 60 (> 60); eGFR For Non-African Americans > 60 (> 60)
[2022-01-01] MEDS ORDERED: *HR* Atropine Sulfate 1 MG/10 ML SYRINGE ONE (01:51)
[2022-01-01] MEDS ORDERED: Perflutren Lipid Microsphere 1.3 ML in 0.9 % Sodium Chloride 8.7 ML IVP PRN (03:24)
[2022-01-01] MEDS: 0.9 % Sodium Chloride 500 ML IVC SCH ×2 (03:45→13:55)
[2022-01-01 05:15] LABS: Basophils % 0.2 %; Eosinophils # 0.1 K/mcL (0.0-0.6); Eosinophils % 0.6 %; Hematocrit 35.3 % (37.5-50.1); Hemoglobin 11.4 g/dL (12.9-16.9); Immature Granulocytes % 0.3 % (0-4); Lymphocytes % 9.1 %; Mean Corpuscular HGB Conc 32.3 g/dL (31.6-35.5); Mean Corpuscular Hemoglobin 27.7 pg (28.0-33.3); Mean Corpuscular Volume 85.7 fL (83.0-100.0); Mean Platelet Volume 9.6 fL (9.4-12.4); Monocytes # 0.6 K/mcL (0.0-1.3); Platelet Count 216 K/mcL (140-400); Red Blood Count 4.12 M/mcL (4.19-5.50); Red Cell Distribution Width 14.5 % (11.5-14.5); Segmented Neutrophils % 83.8 %; White Blood Count 10.7 K/mcL (4.3-11.1)
[2022-01-01 05:35] LABS: BUN/Creatinine Ratio 21 (6-26); Blood Urea Nitrogen 16 mg/dL (8-23); Calcium 9.1 mg/dL (8.6-10.3); Carbon Dioxide 21 mEq/L (23-29); Chloride 102 mEq/L (98-107); Glucose 153 mg/dL (70-105); Osmolality,Calculated 278 (280-300); Potassium 4.4 mEq/L (3.5-5.1); Sodium 132 mEq/L (136-145); eGFR For African Americans > 60 (> 60); eGFR For Non-African Americans > 60 (> 60)
[2022-01-01 05:40] LABS: Troponin I 0.09 ng/mL (< 0.04)
[2022-01-01 08:03] LABS: Bilirubin,Urine Negative (Negative); Blood,Urine Negative (Negative); Clarity,Urine Clear (Clear); Color,Urine Light-Yellow (Yellow); Glucose,Urine (UA) Normal (Normal); Ketones,Urine Negative (Negative); Leukocyte Esterase,Urine Negative (Negative); Nitrite,Urine Negative (Negative); Protein,Urine Negative (Neg-Trace); Specific Gravity,Urine > 1.030 (1.010-1.025); Urobilinogen,Urine Normal (Normal)
[2022-01-01] MEDS: Aspirin 81 MG TAB.CHEW PO SCH (08:16)
[2022-01-01] MEDS: *HR* Ticagrelor 90 MG TABLET PO SCH ×2 (08:17→20:21)
[2022-01-01] MEDS ORDERED: polyethylene glycoL 3350 17 GM POWD.PACK PO PRN (11:43)
[2022-01-01] MEDS ORDERED: D5% in Water 1,000 ML IVC PRN (12:09)
[2022-01-01] MEDS ORDERED: Dextrose 4 GM Chewable Tablets PO PRN ×2 (12:09)
[2022-01-01] MEDS ORDERED: *HR* Dextrose 50 % in Water (Syg) 50 ML SYRINGE IVP PRN (12:09)
[2022-01-01] MEDS: Insulin LISPRO 300 UNITS/3 ML VIAL SUBQ SCH ×2 (12:39→16:41)
[2022-01-01] MEDS: *HR* Heparin 5,000 UNIT/ML VIAL SQ SCH (18:28)
[2022-01-02] MEDS: *HR* Heparin 5,000 UNIT/ML VIAL SQ SCH ×2 (05:03→17:37)
[2022-01-02 05:50] LABS: Red Cell Distribution Width 14.6 % (11.5-14.5)
[2022-01-02 05:52] LABS: Basophils % 0.3 %; Eosinophils # 0.1 K/mcL (0.0-0.6); Eosinophils % 0.8 %; Hematocrit 38.8 % (37.5-50.1); Hemoglobin 12.1 g/dL (12.9-16.9); Immature Granulocytes % 0.4 % (0-4); Immature Platelets 2.3 % (1.1-6.1); Lymphocytes # 1.3 K/mcL (0.6-4.6); Lymphocytes % 13.2 %; Mean Corpuscular HGB Conc 31.2 g/dL (31.6-35.5); Mean Corpuscular Hemoglobin 27.1 pg (28.0-33.3); Mean Corpuscular Volume 86.8 fL (83.0-100.0); Mean Platelet Volume 9.6 fL (9.4-12.4); Monocytes # 0.9 K/mcL (0.0-1.3); Neutrophils # 7.3 K/mcL (1.6-8.9); Platelet Count 190 K/mcL (140-400); Red Blood Count 4.47 M/mcL (4.19-5.50); Segmented Neutrophils % 76.3 %; White Blood Count 9.6 K/mcL (4.3-11.1)
[2022-01-02 06:05] LABS: BUN/Creatinine Ratio 16 (6-26); Blood Urea Nitrogen 13 mg/dL (8-23); Calcium 9.5 mg/dL (8.6-10.3); Carbon Dioxide 23 mEq/L (23-29); Chloride 104 mEq/L (98-107); Glucose 127 mg/dL (70-105); Osmolality,Calculated 282 (280-300); Potassium 4.5 mEq/L (3.5-5.1); Sodium 135 mEq/L (136-145); eGFR For African Americans > 60 (> 60); eGFR For Non-African Americans > 60 (> 60)
[2022-01-02 07:42] LABS: Estimated Average Glucose 166 mg/dl; Hemoglobin A1C 7.4 %
[2022-01-02] MEDS: Insulin LISPRO 300 UNITS/3 ML VIAL SUBQ SCH ×3 (08:28→17:38)
[2022-01-02] MEDS: Aspirin 81 MG TAB.CHEW PO SCH (08:40)
[2022-01-02] MEDS: *HR* Ticagrelor 90 MG TABLET PO SCH ×2 (08:40→19:47)
[2022-01-03] MEDS: *HR* Heparin 5,000 UNIT/ML VIAL SQ SCH (05:56)
[2022-01-03] MEDS: *HR* Ticagrelor 90 MG TABLET PO SCH (07:41)
[2022-01-03] MEDS: Insulin LISPRO 300 UNITS/3 ML VIAL SUBQ SCH ×2 (07:41→12:15)
[2022-01-03] MEDS: Aspirin 81 MG TAB.CHEW PO SCH (07:42)
[2022-01-03 09:19] LABS: Basophils % 0.5 %; Eosinophils # 0.2 K/mcL (0.0-0.6); Eosinophils % 2.3 %; Hematocrit 39.1 % (37.5-50.1); Hemoglobin 12.5 g/dL (12.9-16.9); Immature Granulocytes % 0.2 % (0-4); Lymphocytes # 1.6 K/mcL (0.6-4.6); Lymphocytes % 17.6 %; Mean Corpuscular Hemoglobin 27.3 pg (28.0-33.3); Mean Corpuscular Volume 85.4 fL (83.0-100.0); Monocytes # 0.8 K/mcL (0.0-1.3); Neutrophils # 6.3 K/mcL (1.6-8.9); Platelet Count 301 K/mcL (140-400); Red Blood Count 4.58 M/mcL (4.19-5.50); Red Cell Distribution Width 14.5 % (11.5-14.5); Segmented Neutrophils % 70.4 %; White Blood Count 8.9 K/mcL (4.3-11.1)
[2022-01-03 10:01] LABS: BUN/Creatinine Ratio 18 (6-26); Blood Urea Nitrogen 16 mg/dL (8-23); Calcium 9.8 mg/dL (8.6-10.3); Carbon Dioxide 25 mEq/L (23-29); Chloride 103 mEq/L (98-107); Glucose 211 mg/dL (70-105); Osmolality,Calculated 291 (280-300); Potassium 4.2 mEq/L (3.5-5.1); Sodium 137 mEq/L (136-145); eGFR For African Americans > 60 (> 60); eGFR For Non-African Americans > 60 (> 60)
[2022-01-03 11:29] VITALS: BP 148/54; PULSE 60; TEMP 98.7; O2SAT 99
== END 2022-01-03 13:54 | disposition home or self-care (01) | DRG 246 ==
LOC: 2NNU 00:44 → EMEROOARM 00:44 → 2NNU 01:38
PROVIDERS: ADMIT Internal Medicine Cardiovascular Disease; ATTEND Internal Medicine Cardiovascular Disease